=== PATIENT | female | born 1960 | race Caucasian/White ===

== ENCOUNTER 2017-04-25 05:55 | Inpatient (IN) | payer BC ==
--- NOTE | 2017-04-23 11:18 | HP ---
ADMIT DATE: 04/25/2017 HISTORY OF PRESENT ILLNESS: The patient is a pleasant 57-year-old who in 07/2015 underwent lumbar microsurgery at L4-L5 for spinal stenosis and radiculopathy. This was a bilateral exposure. She did very well following that surgery. Over the last 6 months, she has developed pain in her lower back which radiates into her right posterolateral thigh and leg. There is also pain in the right buttock. She said she noticed some atrophy of her right buttock. The problem began spontaneously. The pain is intermittent, but when it occurs it is extremely severe. Twisting or lateral movements increase her pain. She has pain which is severe several times per day. She has been to physical therapy which she said gave her no lasting relief. She has also had epidural steroid injections which also has not been helpful. There is no significant pain in her left leg. PAST MEDICAL HISTORY: None reported. PAST SURGICAL HISTORY: Right knee arthroscopy in 1986, hysterectomy and bladder suspension in 1999, hernia repair and cholecystectomy in 2013, microvascular decompression in 2003 and 2008, and lumbar laminectomy in 07/2015. FAMILY HISTORY: Cancer, spine problems, and hypertension. SOCIAL HISTORY: Employed as a RECORDS ANALYST. . Nonsmoker. Drinks alcohol one to two times per week. ALLERGIES: No known drug allergies. CURRENT MEDICATIONS: Ibuprofen, turmeric. REVIEW OF SYSTEMS: A 12-point review of systems was obtained and is noncontributory except for that mentioned above. PHYSICAL EXAMINATION: NEUROSURGERY EXAMINATION: GENERAL APPEARANCE: Alert, pleasant, in no acute distress. HEAD: Normocephalic and atraumatic. SKIN: Warm and dry. Well-healed lumbar incision. MUSCULOSKELETAL: Lumbar paraspinal muscle bulk is normal, restricted range of motion of the lumbar spine, diffuse moderate tenderness of lower lumbar spine with palpation, normal range of motion of the lower extremities bilaterally. EXTREMITIES: No clubbing, cyanosis, or edema. NEUROLOGIC: Alert and oriented x3, normal recent and remote memory, strength 5/5 in bilateral lower extremities, sensory was intact to light touch in the lower extremities bilaterally, reflexes were trace and symmetric in bilateral lower extremities, positive straight leg raising on the right with back, right buttock, posterior thigh pain, negative straight leg raising on the left, and normal gait. IMAGING REVIEWED: I reviewed her lumbar MRI scan. Studied that with the patient in supine. She developed a new 7-mm anterolisthesis at L4-L5 with new advanced loss of disk height. The pars intraarticularis are distorted. There is a moderate posterior disk bulging with lateral recess narrowing bilaterally. Left foramen is moderately narrowed, and the right foramen is now newly narrowed related to disk bulging and loss of disk space, height, and listhesis. In the plain lumbar spine films, with the patient standing, she demonstrates a 12-mm anterolisthesis of L4 and L5 which is not changed significantly with her flexion and extension images. ASSESSMENT: 1. Spondylolisthesis, lumbar region. 2. Spinal stenosis, lumbar region. 3. Radiculopathy, lumbar region. The patient has developed spondylolisthesis which is 7 mm with her supine and 12 mm with her standing. She has developed severe neural foraminal narrowing and lateral recess narrowing which is now prominent on the right side. She is having episodes of severe disabling pain which are interfering with all of her activities. She has failed to improve with lumbar epidural steroid injections as well as physical therapy. My recommendation at this point is for surgery to perform a laminectomy at L4-L5 combined with posterior instrumentation and posterolateral fusion. I would combine this with diskectomy at this level and interbody fusion cage from an anterior lateral approach. I did discuss this with her in detail. I outlined the surgery and the risks involved. We spoke about the expected postoperative course. She would like to go ahead. We will make the arrangements. ANGELINA LUNDBERG MD DR: LUISITO/eric JOB#: [id number] / [id number]
[2017-04-25] VITALS (9 sets, daily range): BP systolic 93–112; BP diastolic 55–68
[~2017-04-25] VITALS: Ht 157.5 cm; Wt 58.5 kg
[~2017-04-25 05:55] MED LIST: CYCL10TA2 PO; DOCU-27 PO; ESTR0.5T IM; HYDR-2679 PO; IBUP-1027 PO
[2017-04-25] MEDS ORDERED: BACITRACIN 50,000 UNIT in IV NORMAL SALINE 1000ML BAG 1,000 ML IRR ONE (06:00)
[2017-04-25] MEDS ORDERED: CYAN100016 SL (06:26)
[2017-04-25] MEDS ORDERED: ceFAZolin 2GM PREMIX 2 GM/50 ML BAG IV ONE (06:49)
[2017-04-25] MEDS ORDERED: THROMBIN TOPICAL 20,000 UNIT SPRAY.SYRN KIT TP ONE (06:56)
[2017-04-25] MEDS ORDERED: KETOROLAC 60 MG/2 ML INJ FOR OR. ONE (06:56)
[2017-04-25] MEDS ORDERED: GELATIN SPONGE SIZE 100. ONE (06:56)
[2017-04-25] MEDS ORDERED: BUPIVAC MPF-EPI 0.5%-1:200000 30 ML VIAL. ONE (06:56)
[2017-04-25] MEDS ORDERED: fentaNYL PF VIAL 100 MCG/2 ML VIAL IV PRN ×2 (07:00→14:30)
[2017-04-25] MEDS ORDERED: MORPHINE SULFATE 2 MG/ML DISP.SYRIN. IV PRN (07:00)
[2017-04-25] MEDS ORDERED: LIDOCAINE 1% 1 ML SYRINGE. ID PRN (07:00)
[2017-04-25] MEDS ORDERED: PROCHLORPERAZINE 10 MG/2 ML VIAL. IV PRN (07:00)
[2017-04-25] MEDS ORDERED: HYDROmorphone 2 MG/ML VIAL IV PRN (07:00)
[2017-04-25] MEDS ORDERED: ONDANSETRON PF 4 MG/2 ML VIAL. IV PRN ×2 (07:00→14:30)
[2017-04-25] MEDS ORDERED: IV RINGERS,LACTATED 1000ML 1,000 ML IV SCH (07:00)
[2017-04-25] MEDS ORDERED: LIDOCAINE 2% PF Vial for OR 5 ML VIAL. ONE (07:55)
[2017-04-25] MEDS ORDERED: PROPOFOL 20 ML IV ONE (07:55)
[2017-04-25] MEDS ORDERED: ONDANSETRON PF 4 MG/2 ML VIAL. ONE (07:55)
[2017-04-25] MEDS ORDERED: 0.9 % SODIUM CHLORIDE 50 ML VIAL. IJ ONE (07:55)
[2017-04-25] MEDS ORDERED: DEXAMETHASONE SOD PHOS 20 MG/5 ML VIAL. ONE (07:55)
[2017-04-25] MEDS ORDERED: MIDAZOLAM HCL/PF 2 MG/2 ML VIAL. ONE (07:55)
[2017-04-25] MEDS ORDERED: MINERAL OIL/PETROLATUM,WHITE OPHTH OINT 3.5GM TUBE. ONE (07:55)
[2017-04-25] MEDS ORDERED: PROPOFOL 50 ML IV ONE ×2 (07:55→11:39)
[2017-04-25] MEDS ORDERED: fentaNYL PF VIAL 100 MCG/2 ML VIAL ONE (07:56)
[2017-04-25] MEDS ORDERED: ROCURONIUM 50 MG/5 ML VIAL. ONE (07:56)
[2017-04-25] MEDS ORDERED: REMIFENTANIL 2 MG VIAL. IV ONE (07:56)
[2017-04-25] MEDS ORDERED: SCOPOLAMINE 1.5MG PATCH. TD ONE (08:00)
--- NOTE | 2017-04-25 09:17 | RAD ---
CT of the lumbar spine without contrast, 04/25/2017: History: Disc herniation, spondylolisthesis, brain lab study Noncontrast scans were obtained with multiplanar reconstructions produced. The data was transferred to the operating room to aid in the patient's stereotactically guided surgery. The following findings are delineated: 1. At L4-5 there is a moderate grade 1-2 spondylolisthesis. There appears to be a partial laminectomy defect on the right. There is unilateral spondylolysis on the right at L4. There is a mild rotatory component to the spondylolisthesis. There is severe disc space narrowing with endplate sclerosis, cyst formation and marginal spurring at L4-5. There is a moderate size broad-based posterior disc herniation which in conjunction with the spondylolisthesis is causing severe central spinal stenosis as well as bilateral foraminal stenosis, worse on the right at this level. 2. At L1-2 there are mild degenerative changes involving the facet joints. The central spinal canal and neural foramina are well preserved. 3. At L2-3 there are mild degenerative changes involving the facet joints. There is mild broad-based posterior disc bulging. There is borderline narrowing of the thecal sac. The neural foramina are well maintained. 4. At L3-4 there are moderate degenerative changes involving the facet joints with moderate broad-based posterior disc bulging. There is mild associated narrowing of the thecal sac in a triangular configuration. There is mild inferior foraminal narrowing bilaterally. 5. At L5-S1 there are mild degenerative changes involving the facet joints. There is mild posterior disc bulging. Left facet joint spurring is causing mild narrowing of the left neural foramen medially. PQRS Compliance Statement: One or more of the following individualized dose reduction techniques were utilized for this examination: 1. Automated exposure control 2. Adjustment of the mA and/or kV according to patient size 3. Use of iterative reconstruction technique
[2017-04-25] MEDS ORDERED: ePHEDrine PF IN SALINE 50 MG/5 ML DISP.SYRIN IV ONE (09:36)
[2017-04-25] MEDS ORDERED: GLYCOPYRROLATE 1 MG/5 ML VIAL. ONE (09:36)
[2017-04-25] MEDS ORDERED: PHENYLEPHRINE in 0.9% NACL PF 1 MG/10 ML DISP.SYRIN. IV ONE (09:42)
[2017-04-25] MEDS ORDERED: ALBUMIN HUMAN 5% 500 ML IV ONE (10:07)
[2017-04-25] MEDS ORDERED: PHENYLEPHRINE 10 MG/ML VIAL. ONE (10:12)
[2017-04-25] MEDS ORDERED: oxyCODONE/APAP 5/325 1 TAB TABLET PO PRN (14:30)
[2017-04-25] MEDS ORDERED: 0.9 % SODIUM CHLORIDE 10 ML DISP.SYRIN. IV PRN (14:30)
[2017-04-25] MEDS ORDERED: MAGNESIUM HYDROXIDE 2,400 MG/30 ML ORAL.SUSP. PO PRN (14:30)
[2017-04-25] MEDS ORDERED: MAG HYDROX/ALUMINUM HYD/SIMETH 30 ML ORAL.SUSP PO PRN (14:30)
[2017-04-25] MEDS ORDERED: diphenhydrAMINE HCL 25 MG CAPSULE PO PRN (14:30)
[2017-04-25] MEDS ORDERED: ACETAMINOPHEN 325 MG TABLET. PO PRN (14:30)
[2017-04-25] MEDS ORDERED: diphenhydrAMINE 50 MG/ML VIAL IV PRN (14:30)
[2017-04-25] MEDS ORDERED: ZOLPIDEM 5 MG TABLET. PO PRN (14:30)
[2017-04-25] MEDS ORDERED: CALCIUM CARBONATE 500 MG TAB.CHEW PO PRN (14:30)
[2017-04-25] MEDS: fentaNYL PF VIAL 100 MCG/2 ML VIAL IV PRN ×2 (14:35→14:44)
[2017-04-25] MEDS: POTASSIUM CL 20MEQ D5-0.45NACL 1,000 ML IV SCH ×2 (16:00→23:24)
[2017-04-25] MEDS: diazePAM 5 MG TABLET PO PRN (16:10)
[2017-04-25] MEDS: oxyCODONE/APAP 5/325 1 TAB TABLET PO PRN ×2 (16:20→19:21)
[2017-04-25] MEDS ORDERED: DOCUSATE SODIUM 100 MG CAPSULE. PO SCH (21:00)
[2017-04-25] MEDS: DOCUSATE SODIUM 100 MG CAPSULE. PO SCH (21:07)
[2017-04-26] MEDS: diazePAM 5 MG TABLET PO PRN (01:35)
[2017-04-26 03:00] VITALS: BP 97/62
[2017-04-26 07:08] VITALS: BP 99/68
[2017-04-26] MEDS: DOCUSATE SODIUM 100 MG CAPSULE. PO SCH (07:31)
[2017-04-26] MEDS ORDERED: CYANOCOBALAMIN (VITAMIN B-12) 1,000 MCG TABLET. PO SCH (09:00)
[2017-04-26] MEDS ORDERED: OXYC-323 PO (09:42)
[2017-04-26] MEDS ORDERED: DIAZ5TAB PO (09:43)
[2017-04-26 10:00] VITALS: BP 95/66
--- NOTE | 2017-04-26 10:00 | PDOC ---
PROGRESS NOTES Subjective Subjective POD #1 back/ incisional pain and some pain in right thigh, controlled with medication has ambulated several times in [place] Objective Objective Vital Signs Date Time Temp Pulse Resp B/P (MAP) Pulse Ox O2 Delivery O2 Flow Rate FiO2 04/26/17 07:53 Room Air 04/26/17 07:08 98.1 67 18 99/68 (78) 98 98.1 04/25/17 14:03 10 Intake and Output 04/26/17 07:00 Intake Total 2839 ml Output Total 700 ml Balance 2139 ml Intake Oral 1280 ml IV Total 1559 ml Output Urine Total 700 ml # Voids 1 Physical Exam General: Alert, Oriented X3, Cooperative, No acute distress MUSCULOSKELETAL: Other (REGALADO) Neuro: Normal speech Skin: Other (Dressing dry and intact, flat) Plan Plan of Care may dc home f/u 2 weeks Comment Review of Relevant I have reviewed the following items ajay (where applicable) has been applied. Medications Current Medications Ondansetron HCl (Zofran) 4 mg PRN Q6HRS PRN IV NAUSEA/VOMITING; Start 04/25/17 at 07:00; Stop 04/26/17 at 06:59; Status DC Fentanyl Citrate (Fentanyl 2ml Vial) 25 mcg PRN Q5MIN PRN IV MILD PAIN; Start 04/25/17 at 07:00; Stop 04/26/17 at 06:59; Status DC Fentanyl Citrate (Fentanyl 2ml Vial) 50 mcg PRN Q5MIN PRN IV MODERATE PAIN Last administered on 04/25/17 14:44; Start 04/25/17 at 07:00; Stop 04/26/17 at 06: 59; Status DC Morphine Sulfate 1 mg PRN Q10MIN PRN IV SEVERE PAIN; Start 04/25/17 at 07:00; Stop 04/26/17 at 06:59; Status DC Ringer's Solution 1,000 ml @ 30 mls/hr Q24H IV Last administered on 04/25/17 06:57; Start 04/25/17 at 07:00; Stop 04/25/17 at 18:59; Status DC Lidocaine HCl 2 ml PRN 1X PRN ID PRIOR TO IV START; Start 04/25/17 at 07:00; Stop 04/26/17 at 06:59; Status DC Hydromorphone HCl (Dilaudid) 0.5 mg PRN Q10MIN PRN IV SEV PAIN, Second choice; Start 04/25/17 at 07:00; Stop 04/26/17 at 06:59; Status DC Prochlorperazine Edisylate (Compazine) 5 mg PACU PRN PRN IV NAUSEA, MRX1; Start 04/25/17 at 07:00; Stop 04/26/17 at 06:59; Status DC Bacitracin 64019 unit/Sodium Chloride 1,000 ml @ 1,000 mls/hr 1X PERIOP ONCE IRR Last administered on 04/25/17 09:29; Start 04/25/17 at 06:00; Stop 04/25/17 at 06:59; Status DC Cefazolin Sodium/ Dextrose 50 ml @ 100 mls/hr 1X PREOP PRN IV PRIOR TO PROCEDURE Last administered on 04/25/17 13:10; Start 04/25/17 at 06:00; Stop 04/25 at 18:00; Status DC Bupivacaine HCl/ Epinephrine Bitart (Sensorcain-Mpf Epi 0.5%-1:539189) 30 ml STK -MED ONCE .ROUTE Last administered on 04/25/17 09:29; Start 04/25/17 at 06:56; Stop 04/25/17 at 06:57; Status DC Gelatin (Gelfoam Size 100) 1 each STK-MED ONCE .ROUTE Last administered on 04/25 09:29; Start 04/25/17 at 06:56; Stop 04/25/17 at 06:57; Status DC Ketorolac Tromethamine (Toradol For Or Only) 60 mg STK-MED ONCE .ROUTE Last administered on 04/25/17 09:29; Start 04/25/17 at 06:56; Stop 04/25/17 at 06:57; Status DC Thrombin 20,000 unit STK-MED ONCE TP Last administered on 04/25/17 09:29; Start 04/25/17 at 06:56; Stop 04/25/17 at 06:57; Status DC Scopolamine (Transderm-Scop) 1 patch 1X ONCE TD Last administered on 04/25/17 07:57; Start 04/25/17 at 08:00; Stop 04/25/17 at 08:01; Status DC Dexamethasone Sodium Phosphate (Decadron) 20 mg STK-MED ONCE .ROUTE ; Start 04/25 at 07:55; Stop 04/25/17 at 07:56; Status DC Lidocaine HCl (Lidocaine Pf 2% Vial) 5 ml STK-MED ONCE .ROUTE ; Start 04/25/17 at 07:55; Stop 04/25/17 at 07:56; Status DC Ondansetron HCl (Zofran) 4 mg STK-MED ONCE .ROUTE ; Start 04/25/17 at 07:55; Stop 04/25/17 at 07:56; Status DC Propofol 50 ml @ As Directed STK-MED ONCE IV ; Start 04/25/17 at 07:55; Stop 04/25 at 07:56; Status DC Propofol 20 ml @ As Directed STK-MED ONCE IV ; Start 04/25/17 at 07:55; Stop 04/25 at 07:56; Status DC Multi-Ingred Cream/Lotion/Oil/ Oint (Artificial Tears Eye Oint) 7 jaime STK-MED ONCE .ROUTE ; Start 04/25/17 at 07:55; Stop 04/25/17 at 07:56; Status DC Sodium Chloride (Sodium Chloride) 50 ml STK-MED ONCE IJ ; Start 04/25/17 at 07:55 ; Stop 04/25/17 at 07:56; Status DC Midazolam HCl (Versed) 2 mg STK-MED ONCE .ROUTE ; Start 04/25/17 at 07:55; Stop 04/25/17 at 07:56; Status DC Remifentanil HCl (Ultiva) 2 mg STK-MED ONCE IV ; Start 04/25/17 at 07:56; Stop at 07:57; Status DC Fentanyl Citrate (Fentanyl 2ml Vial) 100 mcg STK-MED ONCE .ROUTE ; Start at 07:56; Stop 04/25/17 at 07:57; Status DC Rocuronium [place] (Zemuron) 50 mg STK-MED ONCE .ROUTE ; Start 04/25/17 at 07:56 ; Stop 04/25/17 at 07:57; Status DC Ephedrine Sulfate 50 mg STK-MED ONCE IV ; Start 04/25/17 at 09:36; Stop 04/25/17 at 09:37; Status DC Glycopyrrolate (Robinul) 1 mg STK-MED ONCE .ROUTE ; Start 04/25/17 at 09:36; Stop 04/25/17 at 09:37; Status DC Phenylephrine HCl 1 mg STK-MED ONCE IV ; Start 04/25/17 at 09:42; Stop 04/25/17 at 09:43; Status DC Albumin Human 500 ml @ As Directed STK-MED ONCE IV ; Start 04/25/17 at 10:07; Stop 04/25/17 at 10:08; Status DC Phenylephrine HCl (Erick-Synephrine Inj) 10 mg STK-MED ONCE .ROUTE ; Start at 10:12; Stop 04/25/17 at 10:13; Status DC Propofol 50 ml @ As Directed STK-MED ONCE IV ; Start 04/25/17 at 11:39; Stop 04/25 at 11:40; Status DC Cefazolin Sodium/ Dextrose (Ancef 2gm Premix) 2 gm STK-MED ONCE IV ; Start at 06:49; Stop 04/25/17 at 11:56; Status DC Cefazolin Sodium/ Dextrose 50 ml @ 100 mls/hr 1X ONCE IV Last administered on 04/25/17 09:19; Start 04/25/17 at 13:15; Stop 04/25/17 at 13:44; Status DC Docusate Sodium (Colace) 100 mg BID PO Last administered on 04/26/17 07:31; Start 04/25/17 at 21:00 Cyanocobalamin (Vitamin B-12) 1,000 mcg DAILY PO ; Start 04/26/17 at 09:00 Acetaminophen (Tylenol) 650 mg PRN Q6HRS PRN PO MILD PAIN / TEMP; Start at 14:30 Al Hydroxide/Mg Hydroxide (Mylanta Plus Xs) 30 ml PRN Q3HRS PRN PO HEARTBURN / GAS; Start 04/25/17 at 14:30 Calcium Carbonate/ Glycine (Tums) 500 mg PRN Q3HRS PRN PO INDIGESTION; Start at 14:30 Diphenhydramine HCl (Benadryl) 25 mg PRN Q6HRS PRN PO ITCHING; Start 04/25/17 at 14:30 Diphenhydramine HCl (Benadryl) 25 mg PRN Q6HRS PRN IV ITCHING; Start 04/25/17 at 14:30 Zolpidem Tartrate (Ambien) 5 mg PRN QHS PRN PO INSOMNIA, MAY REPEAT IN 1HR; Start 04/25/17 at 14:30 Sodium Chloride (Normal Saline Flush) 3 ml QSHIFT PRN IV AFTER MEDS AND BLOOD DRAWS; Start 04/25/17 at 14:30 Potassium Chloride/Dextrose/ Sod Cl 1,000 ml @ 75 mls/hr [id number] IV Last administered on 04/25/17 23:24; Start 04/25/17 at 16:00 Oxycodone/ Acetaminophen (Percocet 5/325) 1 tab PRN Q4HRS PRN PO MILD PAIN, 1ST CHOICE Last administered on 04/25/17 19:21; Start 04/25/17 at 14:30 Oxycodone/ Acetaminophen (Percocet 5/325) 2 tab PRN Q4HRS PRN PO MODERATE PAIN , SEVERE PAIN Last administered on 04/25/17 23:31; Start 04/25/17 at 14:30 Diazepam (Valium) 2.5 mg PRN Q6HRS PRN IV MUSPM; Start 04/25/17 at 14:30 Diazepam (Valium) 5 mg PRN Q8HRS PRN PO MUSPM Last administered on 04/26/17 01: 35; Start 04/25/17 at 14:30 Docusate Sodium (Colace) 100 mg BID PO ; Start 04/25/17 at 21:00; Status Cancel Magnesium Hydroxide (Milk Of Magnesia) 2,400 mg PRN Q12HR PRN PO CONSTIPATION; Start 04/25/17 at 14:30 Ondansetron HCl (Zofran) 4 mg PRN Q6HRS PRN IV NAUESA, 1ST CHOICE; Start at 14:30 Cefazolin Sodium 1 gm/Sodium Chloride 50 ml @ 100 mls/hr Q8H IV Last administered on 04/26/17 07:30; Start 04/25/17 at 17:30; Stop 04/26/17 at 09:59 Fentanyl Citrate (Fentanyl 2ml Vial) 50 mcg PRN Q2HR PRN IV PAIN; Start at 14:30 Active Scripts Active Colace (Docusate Sodium) 100 Mg Capsule 100 Mg PO BID Reported Valium (Diazepam) 5 Mg Tablet 5 Mg PO TID Percocet 5-325 Mg Tablet (Oxycodone/Acetaminophen) 1 Each Tablet 1-2 Tab PO Q4- 6HRS Vitamin B-12 (Cyanocobalamin (Vitamin B-12)) 1,000 Mcg Tab.subl 1,000 Mcg SL DAILY Meds not given this hospital admission. May resume home medications as approved by Physician. Vitals/I & O Vital Sign - Last 24 Hours 04/25/17 04/25/17 04/25/17 04/25/17 14:03 14:03 14:18 14:33 Temp 97.9 97.9 Pulse 117 112 105 Resp 15 18 18 B/P (MAP) 106/66 112/80 126/69 Pulse Ox 98 98 96 O2 Delivery Simple Mask Mask Room Air Room Air O2 Flow Rate 10 10 04/25/17 04/25/17 04/25/17 04/25/17 14:48 15:10 15:10 15:15 Temp 97.7 97.7 Pulse 105 93 Resp 14 17 B/P (MAP) 109/76 104/67 (79) Pulse Ox 96 97 O2 Delivery Room Air Room Air Room Air Room Air 04/25/17 04/25/17 04/25/17 04/25/17 15:25 15:38 15:55 16:20 Pulse 91 91 90 B/P (MAP) 112/68 (83) 95/68 (77) 106/65 (79) Pulse Ox 95 95 95 O2 Delivery Room Air Room Air Room Air 04/25/17 04/25/17 04/25/17 04/25/17 16:25 16:55 18:41 19:16 Temp 97.9 97.3 97.9 97.3 Pulse 114 84 76 74 Resp 17 B/P (MAP) 104/68 (80) 93/55 (68) 93/62 (72) 96/61 (73) Pulse Ox 98 98 95 95 O2 Delivery Room Air Room Air Room Air Room Air 04/25/17 04/25/17 04/25/17 04/25/17 19:21 20:00 20:30 23:00 Temp 97.7 97.7 Pulse 72 Resp 20 20 17 B/P (MAP) 93/62 (72) Pulse Ox 94 93 97 O2 Delivery Room Air Room Air Room Air Room Air 04/25/17 04/26/17 04/26/17 04/26/17 23:31 00:30 03:00 07:08 Temp 98.4 98.1 98.4 98.1 Pulse 67 67 Resp 20 18 17 18 B/P (MAP) 97/62 (74) 99/68 (78) Pulse Ox 96 95 97 98 O2 Delivery Room Air Room Air Room Air Room Air 04/26/17 07:53 O2 Delivery Room Air Intake and Output 04/25/17 04/25/17 04/26/17 15:00 23:00 07:00 Intake Total 1600 ml 739 ml 500 ml Output Total 500 ml 200 ml Balance 1600 ml 239 ml 300 ml ANGELINA LUNDBERG MD Apr 26, 2017 10:00
[2017-04-26] MEDS: oxyCODONE/APAP 5/325 1 TAB TABLET PO PRN (10:01)
--- NOTE | 2017-04-26 10:01 | DISCH ---
DISCHARGE INSTRUCTIONS Condition on Discharge Condition on Discharge: Stable Activity After Discharge Activity Instructions for Disc: Activity as tolerated, Avoid exertion Bathing Instructions: Shower-keep dressing dry Lifting Instructions after Dis: No heavy lifting, No pulling or pushing, Do not lift >10 pounds Driving Instructions after Dis: No driving for 2 weeks Diet after Discharge Additional Diet Restrictions: resume home diet Wound Incision Care Wound/Incision Care: Ice to area for comfort Other wound/incision instructi: may remove dressing in 48 hrs if dry then may shower- no soaking Contacting the after DC Call your doctor for: Concerns you may have Follow-Up Follow up with: Dr. Lundberg's nurse in 2 weeks [phone] ANGELINA LUNDBERG MD Apr 26, 2017 10:01
--- NOTE | 2017-04-26 23:34 | OP ---
DATE OF SURGERY: 04/25/2017 PREOPERATIVE DIAGNOSES: Grade 1/2 spondylolisthesis L4-L5 with severe bilateral foraminal narrowing right greater than left and right lumbar radiculopathy. POSTOPERATIVE DIAGNOSES: Grade 1/2 spondylolisthesis L4-L5 with severe bilateral foraminal narrowing right greater than left and right lumbar radiculopathy. OPERATIONS PERFORMED: 1. Lumbar transfacet decompression, right L4-L5. 2. Posterior instrumentation L4-L5. 3. Posterolateral fusion L4-L5. 4. Anterior lumbar diskectomy L4-L5. 5. Anterior lumbar interbody fusion L4-L5. The operation was done with stimulated EMG monitoring, fluoroscopy, microscopic dissection, BrainLAB guidance. RAIL FLAW DETECTOR OPERATOR: Ethan Pressley M.D., assisted with the surgery, assisted with the exposure, the microdecompression, microdiskectomy as well as the anterior diskectomy and fusion and closure. OPERATIVE INDICATIONS: The patient is a very pleasant 57-year-old woman who in the past has undergone microdecompressive surgery at L4-L5 and did well. She then developed significant right greater than left leg pain and was found to have posterior disk bulging/herniation at L4-L5 combined with severe lateral recess stenosis most prominent on the right side and motion on flexion and extension films with a grade 1/2 spondylolisthesis. I recommended decompression on the right combined with an instrumented lumbar fusion. I spoke with her about the surgery, the risks, technique and the expected postoperative course and she wished to go ahead. DESCRIPTION OF PROCEDURE: Following general endotracheal anesthesia, the patient was positioned prone on the Galdino table. Her lumbar region was prepped and draped in standard fashion. DYLAN hose and AV impulse boots were applied for DVT prophylaxis. The microscope was draped. Fluoroscopy was draped and brought into the field. Monitoring was established. Ancef 2 grams were given less than 1 hour prior to initiation of the surgery. Iliac posts were placed into the left iliac crest and the BrainLAB system was initialized. I then made 2 paramedian incisions over the L4-L5 interspace. I dissected down through the skin and subcutaneous tissue and we placed self-retaining retractors and then beginning on the left side I drilled into the posterior aspect of the pedicles of L4 and L5, used a black ball followed by the ball tip probe, followed by tap, followed by screw placement. I used a NuVasive system and 6.5 screws. I did at this time expose the lateral facet and the transverse processes of L4 and L5. I did aspirate about 20 mL of bone marrow from the left iliac crest. I placed allograft bone in the left gutter. Screws were placed, the naty was placed, the nuts were applied, but not torqued, and then I went to the right side. In a similar fashion I tapped, but did not place screws of L4 and L5 and I did place posterolateral bone. I brought in the microscope at this point and using the high-speed air drill, I burred down a generous transfacet exposure and exposed the exiting L4 root and remove the hypertrophic bone and posterior disk bulging compressing the L4 root as well as more medially into the disk space. This accomplished ____ I distracted the disk space and also at this point using reducing screws I was able to help reduce the grade 2 spondylolisthesis. I then tilted the patient and performed the anterior operation ____ I used the BrainLAB to guide an anterior approach from the posterolateral flank, I made an incision after infiltrating the skin with 0.5% Marcaine and then using the long BrainLAB probe with a sleeve passed down to pass just over the traversing L4 root and docked at the lateral aspect of the pedicle of L5 working superiorly to identify the disk space. I stimulated with the electrode and assured that the nerve root was not in proximity. I passed a K-wire and then passed a dilator followed by the working channel. Through the working channel, I aggressively performed a diskectomy at L4-L5. I did scrape cartilaginous endplate and then following this I placed allograft bone into the disk space. I then replaced the dilator, removed the working channel, placed a protective shield to protect the far lateral L4 root and then passed a 9 x 9 interbody fusion cage, which was packed with allograft bone and was rotated into position along the tract using the nerve protective shield as a guide. This accomplished, then I irrigated copiously. I did take fluoroscopic images and I assured that the cage was in good position. The cage I placed slightly more on the right hand side. The patient had more severe foraminal narrowing on the right and also there was a laterolisthesis toward the right side, which once the cage was in position had been alleviated. On imaging studies, there was only a very small spondylolisthesis. The cage was in good position. I irrigated copiously and then tilted the patient back to me and completed the posterior operation by compressing very gently on the right and torquing the screws in a sequential fashion on both right and left sides. I did pack further bone into the right lateral gutter after laying Gelfoam over the exposure adjacent to the L4 root and then I irrigated copiously, removed the retractors, obtained hemostasis in the muscle and then closed the wound with absorbable suture and the skin with a 4-0 subcuticular stitch and in a similar fashion the screws were torqued, further bone placed, irrigated copiously and then the wound was closed with absorbable suture, skin with a 4-0 subcuticular stitch. The operation went very well and the patient awakened uneventfully with a little back pain, taken to recovery room with normal strength in her lower extremities. I was quite pleased with the surgery. ANGELINA LUNDBERG MD DR: LUISITO/eric JOB#: [id number] / [id number]
== END 2017-04-26 10:10 | disposition home or self-care (01) | DRG 460 ==
LOC: OPSVCIP 05:55 → 4 SOUTHEST 15:04
PROVIDERS: ADMIT Neurological Surgery; ATTEND Neurological Surgery
PROC: 0SB20ZZ Excision of Lumbar Vertebral Disc, Open Approach (ICD-10-PCS; 2017-04-25)
PROC: 4A11X4G Monitoring of Peripheral Nervous Electrical Activity, Intraoperative, External Approach (ICD-10-PCS; 2017-04-25)
PROC: 0SG00A1 (ICD-10-PCS; principal; 2017-04-25 08:30)
DX: M43.16 Spondylolisthesis, lumbar region (principal); M48.06 Spinal stenosis, lumbar region; M54.16 Radiculopathy, lumbar region; Z90.49 Acquired absence of other specified parts of digestive tract; Z82.49 Family history of ischemic heart disease and other diseases of the circulatory system; Z80.9 Family history of malignant neoplasm, unspecified; Z90.710 Acquired absence of both cervix and uterus
CPT/HCPCS: 36415; 72131; 76000; 86850; 86900; 86901; C1713; C1893; J0690; J1100; J1885; J2250; J2370; J2405; J2704; J3010; J3490; J7030; J7120; P9045; 97530